=== PATIENT | female | born 1930 | race Caucasian/White ===

== ENCOUNTER → 2016-06-03 | Outpatient (CLI) | payer OTHER ==
[2016-06-03 11:22] LABS: Basophils # (auto) 0 uL; Basophils % (auto) 0.6 % (0.0-2.0); Eosinophils # (auto) 0.5 uL; Eosinophils % (auto) 6.2 % (0.0-7.0); Hematocrit 43.7 % (36.0-46.0); Hemoglobin 14.8 g/dL (12.2-16.2); Lymphocytes # (auto) 1.4 uL; Lymphocytes % (auto) 19.5 % (10.0-50.0); Mean Corpuscular Hemoglobin 31.1 pg (28.0-32.0); Mean Corpuscular Hgb Conc. 33.9 g/dL (32.0-36.0); Mean Corpuscular Volume 91.8 fL (80.0-100.0); Mean Platelet Volume 8.3 fL (7.4-10.4); Monocytes # (auto) 0.5 uL; Monocytes % (auto) 6.7 % (0.0-12.0); Platelet Count (auto) 372 10^3/uL (140-450); Red Cell Distribution Width 14.1 % (11.6-16.0); White Blood Cell 7.4 10^3/uL (4.4-10.8)
[2016-06-03 11:44] LABS: Albumin 4.1 g/dL (3.4-5.0); BUN/Creatinine Ratio 11.9; Bilirubin, Total 0.9 mg/dL (0.2-1.0); Calcium 9.3 mg/dL (8.5-10.1); Potassium 4.1 mmol/L (3.5-5.1); Total Protein 7.6 g/dL (6.4-8.2)
[2016-06-03 12:07] LABS: Urine Bilirubin Negative (Negative); Urine Blood Negative /uL (Negative); Urine Color Yellow (Yellow); Urine Glucose Normal (Normal); Urine Ketone Negative (Negative); Urine Nitrite Negative (Negative); Urine RBC <1 /hpf (0 - 4); Urine Squamous Epithelial Cell FEW /hpf (<5); Urine Urobilinogen Normal (Negative); Urine pH 6.5 (5.0-8.0)
== END | disposition home or self-care (01) ==
LOC: LAB 10:48
PROVIDERS: ATTEND Family Medicine
DX: Z00.00 Encounter for general adult medical examination without abnormal findings (principal); D64.9 Anemia, unspecified
CPT/HCPCS: 36415; 80053; 80061; 81001; 82306; 82607; 83036; 84443; 85025

== ENCOUNTER 2016-07-09 14:48 | Inpatient (IN) | payer OTHER ==
[~2016-07-09] VITALS: Ht 152.4 cm; Wt 63.7 kg
[2016-07-09 15:15] VITALS: BP 174/88
[2016-07-09] MEDS ORDERED: MORPHINE SULF INJ 2 MG/ML SYRINGE 1ML IV PRN (15:15)
[2016-07-09] MEDS ORDERED: NITROGLYCERIN 0.4 MG SL TAB SL PRN (15:15)
[2016-07-09] MEDS ORDERED: Fibersource Hn 1 Liter GT SCH (16:00)
[2016-07-09] MEDS ORDERED: VANCOMYCIN PER PHARMACY 0 MG IV SCH (16:00)
[2016-07-09] MEDS ORDERED: ACETAMINOPHEN 325 MG TAB PO PRN (16:00)
[2016-07-09] MEDS ORDERED: DEXTROSE (50%) 50ML SYRG IV PRN (16:00)
[2016-07-09] MEDS ORDERED: ACETAMINOPHEN 650 MG RECT SUPP PR PRN (16:00)
[2016-07-09] MEDS ORDERED: hydrALAZINE HCL 20 MG/ML VL IV PRN (16:00)
[2016-07-09] MEDS ORDERED: METOCLOPRAMIDE HCL 5MG/ml INJ 2ml VIAL IV PRN (16:00)
[2016-07-09] MEDS ORDERED: LACTULOSE 20Gm/30ML SOLN PEG PRN (16:00)
[2016-07-09 17:00] VITALS: BP 174/88
[2016-07-09 17:14] VITALS: BP 161/83
[2016-07-09] MEDS ORDERED: CYANOCOBALAMIN 500 MCG TAB PEG ONE (17:15)
[2016-07-09] MEDS ORDERED: ASPirin 325 MG TAB GT ONE (17:15)
[2016-07-09] MEDS ORDERED: VANCOMYCIN 1GM/250ML D5W 250 ML IV ONE (17:30)
[2016-07-09 17:51] LABS: BUN/Creatinine Ratio 23.1; Calcium 8.7 mg/dL (8.5-10.1)
[2016-07-09] MEDS: FREE WATER GT SCH (18:00)
[2016-07-09] MEDS: ACCU-CHEK COMFORT CURVE STRIP VI SCH (18:00)
[2016-07-09] MEDS: InsuLIN REG 1unit/0.01ml Soln (100units/ml) SC SCH (18:00)
[2016-07-09] MEDS: METHOCARBAMOL 500 MG TAB PEG SCH ×2 (18:00→23:06)
[2016-07-09] MEDS: MEROPENEM 500MG IVPB 100 ML IV SCH ×2 (18:30→23:17)
[2016-07-09] MEDS: METOPROLOL TARTRATE 25 MG TAB PEG SCH (18:30)
[2016-07-09] MEDS: ONDANSETRON HCL 4 MG/2 ML VIAL IV PRN (18:31)
[2016-07-09 18:46] VITALS: BP 133/84
[2016-07-09] MEDS: Fibersource Hn 1 Liter GT SCH (19:32)
[2016-07-09] MEDS: VANCOMYCIN 1GM/250ML D5W 250 ML IV SCH (19:37)
[2016-07-09 22:00] VITALS: BP 140/77
[2016-07-09] MEDS: DOCUSATE SOD 100 MG CAP PO SCH (22:00)
[2016-07-09] MEDS ORDERED: SODIUM CHLOR 0.9% PF (SALINE LOCK) 10ML VIAL IV SCH (22:00)
[2016-07-09] MEDS ORDERED: LEVETIRACETAM 500 MG TAB PO SCH (22:00)
[2016-07-09] MEDS: FLUTICASONE PROP NASAL SPR 0.05 % (50MCG) 16GM EACHNOSTRI SCH (23:04)
[2016-07-09] MEDS: ATORVASTATIN 20 MG TAB GT SCH (23:05)
[2016-07-09] MEDS: SODIUM CHLOR 0.9% PF (SALINE LOCK) 10ML VIAL IV SCH (23:06)
[2016-07-09] MEDS: LEVETIRACETAM 500 MG/5ML ORAL SOLN UD PEG SCH (23:15)
[2016-07-09] MEDS: HEPARIN SODIUM (PORCINE) 5000 UNITS/ML 1ML VIAL SC SCH (23:23)
[2016-07-10] MEDS: ACCU-CHEK COMFORT CURVE STRIP VI SCH ×4 (00:08→17:08)
[2016-07-10] MEDS: FREE WATER GT SCH ×4 (00:08→17:06)
[2016-07-10] MEDS: ONDANSETRON HCL 4 MG/2 ML VIAL IV PRN ×2 (00:29→06:06)
[2016-07-10] MEDS: LORazepam 0.5 MG TAB PEG PRN (00:32)
[2016-07-10] MEDS: MEROPENEM 500MG IVPB 100 ML IV SCH (04:37)
[2016-07-10 04:55] VITALS: BP 127/63
[2016-07-10] MEDS: InsuLIN REG 1unit/0.01ml Soln (100units/ml) SC SCH ×4 (05:48→17:08)
[2016-07-10] MEDS: SODIUM CHLOR 0.9% PF (SALINE LOCK) 10ML VIAL IV SCH ×3 (05:48→21:45)
[2016-07-10] MEDS: METHOCARBAMOL 500 MG TAB PEG SCH ×4 (05:52→21:46)
[2016-07-10] MEDS: HEPARIN SODIUM (PORCINE) 5000 UNITS/ML 1ML VIAL SC SCH ×3 (06:00→22:09)
[2016-07-10 06:05] LABS: Basophils # (auto) 0.1 uL; Basophils % (auto) 0.8 % (0.0-2.0); Eosinophils # (auto) 0.4 uL; Eosinophils % (auto) 2.9 % (0.0-7.0); Hematocrit 30.5 % (36.0-46.0); Hemoglobin 10.1 g/dL (12.2-16.2); Lymphocytes # (auto) 1.2 uL; Lymphocytes % (auto) 9.8 % (10.0-50.0); Mean Corpuscular Hemoglobin 31.1 pg (28.0-32.0); Mean Corpuscular Hgb Conc. 33.2 g/dL (32.0-36.0); Mean Corpuscular Volume 93.5 fL (80.0-100.0); Monocytes % (auto) 7.9 % (0.0-12.0); Neutrophils # (auto) 9.9 uL; Neutrophils % (auto) 78.6 % (37.0-80.0); Platelet Count (auto) 479 10^3/uL (140-450); Red Cell Distribution Width 14.3 % (11.6-16.0); White Blood Cell 12.6 10^3/uL (4.4-10.8)
[2016-07-10 06:36] LABS: Albumin 2.2 g/dL (3.4-5.0); BUN/Creatinine Ratio 19.5; Bilirubin, Total 0.4 mg/dL (0.2-1.0); Calcium 8.7 mg/dL (8.5-10.1); Potassium 3.6 mmol/L (3.5-5.1); Total Protein 5.8 g/dL (6.4-8.2)
[2016-07-10 08:00] VITALS: BP 147/72
[2016-07-10] MEDS: METOPROLOL TARTRATE 25 MG TAB PEG SCH ×2 (08:00→17:07)
[2016-07-10 09:00] VITALS: BP 147/72
[2016-07-10] MEDS: DOCUSATE SOD 100 MG CAP PO SCH ×2 (10:00→21:46)
[2016-07-10] MEDS: POLYETHYLENE GLYCOL 17GM PWDR PEG SCH (10:00)
[2016-07-10] MEDS: FLUTICASONE PROP NASAL SPR 0.05 % (50MCG) 16GM EACHNOSTRI SCH ×2 (10:00→21:45)
[2016-07-10] MEDS: ASPirin 325 MG TAB GT SCH (10:00)
[2016-07-10] MEDS: CYANOCOBALAMIN 500 MCG TAB PEG SCH (10:01)
[2016-07-10] MEDS: LEVETIRACETAM 500 MG/5ML ORAL SOLN UD PEG SCH ×2 (10:01→21:46)
[2016-07-10] MEDS: MEROPENEM 1GM IVPB 100 ML IV SCH ×2 (12:00→21:03)
[2016-07-10 13:00] VITALS: BP 142/74
[2016-07-10] MEDS: HYDROcodone-ACET 5/325MG TAB PEG PRN ×2 (14:00→21:50)
[2016-07-10] MEDS: VANCOMYCIN 1GM/250ML D5W 250 ML IV SCH (20:00)
[2016-07-10] MEDS: Fibersource Hn 1 Liter GT SCH (20:53)
[2016-07-10 21:15] VITALS: BP 144/75
[2016-07-10] MEDS: ATORVASTATIN 20 MG TAB GT SCH (21:45)
[2016-07-11] MEDS: FREE WATER GT SCH ×4 (00:14→17:07)
[2016-07-11] MEDS: ACCU-CHEK COMFORT CURVE STRIP VI SCH ×4 (00:14→17:09)
[2016-07-11] MEDS: ACETAMINOPHEN 650 mg PER 20 mL UD PEG PRN (02:10)
[2016-07-11] MEDS: LORazepam 0.5 MG TAB PEG PRN ×2 (02:10→12:58)
[2016-07-11] MEDS: MEROPENEM 1GM IVPB 100 ML IV SCH ×3 (04:36→20:46)
[2016-07-11] MEDS: HYDROcodone-ACET 5/325MG TAB PEG PRN ×3 (04:43→19:53)
[2016-07-11 05:14] VITALS: BP 127/63
[2016-07-11 05:49] LABS: Basophils # (auto) 0 uL; Basophils % (auto) 0.2 % (0.0-2.0); Eosinophils # (auto) 0.4 uL; Eosinophils % (auto) 3.9 % (0.0-7.0); Hematocrit 30.4 % (36.0-46.0); Hemoglobin 10.2 g/dL (12.2-16.2); Lymphocytes # (auto) 1.2 uL; Lymphocytes % (auto) 11.3 % (10.0-50.0); Mean Corpuscular Hemoglobin 31.2 pg (28.0-32.0); Mean Corpuscular Hgb Conc. 33.5 g/dL (32.0-36.0); Mean Corpuscular Volume 93.1 fL (80.0-100.0); Mean Platelet Volume 8.3 fL (7.4-10.4); Monocytes # (auto) 0.9 uL; Neutrophils # (auto) 8.4 uL; Neutrophils % (auto) 76.6 % (37.0-80.0); Platelet Count (auto) 466 10^3/uL (140-450); Red Cell Distribution Width 14.4 % (11.6-16.0)
[2016-07-11] MEDS: InsuLIN REG 1unit/0.01ml Soln (100units/ml) SC SCH ×4 (06:00→17:09)
[2016-07-11 06:15] LABS: Albumin 2.1 g/dL (3.4-5.0); BUN/Creatinine Ratio 23.8; Bilirubin, Total 0.3 mg/dL (0.2-1.0); Calcium 8.6 mg/dL (8.5-10.1); Potassium 3.7 mmol/L (3.5-5.1); Total Protein 5.6 g/dL (6.4-8.2)
[2016-07-11] MEDS: HEPARIN SODIUM (PORCINE) 5000 UNITS/ML 1ML VIAL SC SCH ×3 (06:25→21:30)
[2016-07-11] MEDS: METHOCARBAMOL 500 MG TAB PEG SCH ×5 (06:25→21:29)
[2016-07-11] MEDS: SODIUM CHLOR 0.9% PF (SALINE LOCK) 10ML VIAL IV SCH ×3 (06:26→22:00)
[2016-07-11 08:00] VITALS: BP 135/61
[2016-07-11 09:00] VITALS: BP 135/61
[2016-07-11] MEDS: LEVETIRACETAM 500 MG/5ML ORAL SOLN UD PEG SCH ×2 (09:32→21:29)
[2016-07-11] MEDS: ASPirin 325 MG TAB GT SCH (09:32)
[2016-07-11] MEDS: METOPROLOL TARTRATE 25 MG TAB PEG SCH ×2 (09:32→17:08)
[2016-07-11] MEDS: FLUTICASONE PROP NASAL SPR 0.05 % (50MCG) 16GM EACHNOSTRI SCH ×2 (09:32→21:29)
[2016-07-11] MEDS: DOCUSATE SOD 100 MG CAP PO SCH ×2 (09:33→20:47)
[2016-07-11] MEDS: CYANOCOBALAMIN 500 MCG TAB PEG SCH (09:33)
[2016-07-11] MEDS: POLYETHYLENE GLYCOL 17GM PWDR PEG SCH (09:33)
[2016-07-11 13:00] VITALS: BP 153/74
[2016-07-11 16:58] VITALS: BP 156/77
[2016-07-11] MEDS: Fibersource Hn 1 Liter GT SCH (19:52)
[2016-07-11] MEDS: VANCOMYCIN 1GM/250ML D5W 250 ML IV SCH (19:53)
[2016-07-11] MEDS: ATORVASTATIN 20 MG TAB GT SCH (21:29)
[2016-07-11 21:33] VITALS: BP 148/82
[2016-07-12] MEDS: InsuLIN REG 1unit/0.01ml Soln (100units/ml) SC SCH ×4 (00:40→18:00)
[2016-07-12] MEDS: LORazepam 0.5 MG TAB PEG PRN (00:52)
[2016-07-12] MEDS: ACETAMINOPHEN 650 mg PER 20 mL UD PEG PRN ×2 (00:53→08:54)
[2016-07-12] MEDS: MEROPENEM 1GM IVPB 100 ML IV SCH ×3 (04:22→21:00)
[2016-07-12 05:20] LABS: Basophils # (auto) 0.1 uL; Basophils % (auto) 0.5 % (0.0-2.0); Eosinophils # (auto) 0.3 uL; Eosinophils % (auto) 3.1 % (0.0-7.0); Hematocrit 30.2 % (36.0-46.0); Hemoglobin 10.2 g/dL (12.2-16.2); Lymphocytes # (auto) 1.2 uL; Lymphocytes % (auto) 10.9 % (10.0-50.0); Mean Corpuscular Hemoglobin 31.3 pg (28.0-32.0); Mean Corpuscular Hgb Conc. 33.7 g/dL (32.0-36.0); Mean Platelet Volume 8.1 fL (7.4-10.4); Monocytes # (auto) 0.9 uL; Monocytes % (auto) 8.9 % (0.0-12.0); Neutrophils # (auto) 8.1 uL; Neutrophils % (auto) 76.6 % (37.0-80.0); Platelet Count (auto) 476 10^3/uL (140-450); Red Cell Distribution Width 13.9 % (11.6-16.0); White Blood Cell 10.6 10^3/uL (4.4-10.8)
[2016-07-12 05:40] LABS: Albumin 2.4 g/dL (3.4-5.0); BUN/Creatinine Ratio 18.8; Calcium 8.6 mg/dL (8.5-10.1); Potassium 3.8 mmol/L (3.5-5.1)
[2016-07-12 05:41] VITALS: BP 136/72
[2016-07-12 05:43] LABS: Bilirubin, Total 0.4 mg/dL (0.2-1.0)
[2016-07-12] MEDS: HEPARIN SODIUM (PORCINE) 5000 UNITS/ML 1ML VIAL SC SCH ×3 (05:48→22:20)
[2016-07-12] MEDS: ACCU-CHEK COMFORT CURVE STRIP VI SCH ×4 (06:00→18:00)
[2016-07-12] MEDS: SODIUM CHLOR 0.9% PF (SALINE LOCK) 10ML VIAL IV SCH ×3 (06:04→22:19)
[2016-07-12] MEDS: FREE WATER GT SCH ×4 (06:04→18:00)
[2016-07-12] MEDS: HYDROcodone-ACET 5/325MG TAB PEG PRN ×3 (06:05→22:19)
[2016-07-12] MEDS: METHOCARBAMOL 500 MG TAB PEG SCH ×4 (06:05→22:18)
[2016-07-12 08:00] VITALS: BP 132/74
[2016-07-12] MEDS: METOPROLOL TARTRATE 25 MG TAB PEG SCH ×2 (08:37→18:42)
[2016-07-12 09:00] VITALS: BP 132/74
[2016-07-12] MEDS: POLYETHYLENE GLYCOL 17GM PWDR PEG SCH (10:00)
[2016-07-12] MEDS: DOCUSATE SOD 100 MG CAP PO SCH ×2 (10:00→22:00)
[2016-07-12] MEDS: CYANOCOBALAMIN 500 MCG TAB PEG SCH (10:21)
[2016-07-12] MEDS: FLUTICASONE PROP NASAL SPR 0.05 % (50MCG) 16GM EACHNOSTRI SCH ×2 (10:21→22:17)
[2016-07-12] MEDS: ASPirin 325 MG TAB GT SCH (10:21)
[2016-07-12] MEDS: LEVETIRACETAM 500 MG/5ML ORAL SOLN UD PEG SCH ×2 (10:21→22:19)
[2016-07-12 13:00] VITALS: BP 145/75
[2016-07-12 17:00] VITALS: BP 155/83
[2016-07-12] MEDS: VANCOMYCIN 1GM/250ML D5W 250 ML IV SCH (20:55)
[2016-07-12] MEDS: ATORVASTATIN 20 MG TAB GT SCH (22:19)
[2016-07-12 22:57] VITALS: BP 130/70
[2016-07-13] MEDS: FREE WATER GT SCH ×4 (00:36→17:12)
[2016-07-13] MEDS: MEROPENEM 1GM IVPB 100 ML IV SCH ×2 (03:36→12:13)
[2016-07-13 05:14] VITALS: BP 141/71
[2016-07-13] MEDS: HYDROcodone-ACET 5/325MG TAB PEG PRN ×3 (05:14→20:22)
[2016-07-13] MEDS: METHOCARBAMOL 500 MG TAB PEG SCH ×4 (05:14→22:18)
[2016-07-13] MEDS: InsuLIN REG 1unit/0.01ml Soln (100units/ml) SC SCH ×3 (05:15→11:44)
[2016-07-13] MEDS: ACCU-CHEK COMFORT CURVE STRIP VI SCH ×4 (05:15→17:47)
[2016-07-13] MEDS: SODIUM CHLOR 0.9% PF (SALINE LOCK) 10ML VIAL IV SCH ×3 (05:15→22:19)
[2016-07-13] MEDS: HEPARIN SODIUM (PORCINE) 5000 UNITS/ML 1ML VIAL SC SCH ×3 (05:16→22:21)
[2016-07-13 06:26] LABS: Basophils # (auto) 0 uL; Basophils % (auto) 0.5 % (0.0-2.0); Eosinophils # (auto) 0.4 uL; Eosinophils % (auto) 4.5 % (0.0-7.0); Hematocrit 29.9 % (36.0-46.0); Lymphocytes # (auto) 1.1 uL; Mean Corpuscular Hemoglobin 31.1 pg (28.0-32.0); Mean Corpuscular Hgb Conc. 33.5 g/dL (32.0-36.0); Mean Corpuscular Volume 92.7 fL (80.0-100.0); Mean Platelet Volume 8.1 fL (7.4-10.4); Monocytes # (auto) 0.8 uL; Monocytes % (auto) 8.7 % (0.0-12.0); Neutrophils # (auto) 6.3 uL; Neutrophils % (auto) 73.3 % (37.0-80.0); Platelet Count (auto) 462 10^3/uL (140-450); Red Cell Distribution Width 14.5 % (11.6-16.0); White Blood Cell 8.6 10^3/uL (4.4-10.8)
[2016-07-13 07:31] LABS: BUN/Creatinine Ratio 23.5; Calcium 8.7 mg/dL (8.5-10.1); Potassium 3.9 mmol/L (3.5-5.1)
[2016-07-13 08:00] VITALS: BP 104/55
[2016-07-13] MEDS: METOPROLOL TARTRATE 25 MG TAB PEG SCH ×2 (08:00→17:12)
[2016-07-13 08:14] VITALS: BP 104/55
[2016-07-13] MEDS: LEVETIRACETAM 500 MG/5ML ORAL SOLN UD PEG SCH ×2 (09:35→22:19)
[2016-07-13] MEDS: FLUTICASONE PROP NASAL SPR 0.05 % (50MCG) 16GM EACHNOSTRI SCH ×2 (09:35→22:19)
[2016-07-13] MEDS: ASPirin 325 MG TAB GT SCH (09:35)
[2016-07-13] MEDS: CYANOCOBALAMIN 500 MCG TAB PEG SCH (09:35)
[2016-07-13] MEDS: POLYETHYLENE GLYCOL 17GM PWDR PEG SCH (09:36)
[2016-07-13] MEDS: DOCUSATE SOD 100 MG CAP PO SCH ×2 (09:36→22:00)
[2016-07-13 12:30] VITALS: BP 100/56
[2016-07-13 16:29] VITALS: BP 98/68
[2016-07-13] MEDS: PIPERACILLIN-TAZOB 3.375GM 100 ML IV SCH (17:12)
[2016-07-13 21:53] VITALS: BP 157/64
[2016-07-13] MEDS: ATORVASTATIN 20 MG TAB GT SCH (22:18)
[2016-07-14] VITALS (8 sets, daily range): BP systolic 98–157; BP diastolic 58–90
[2016-07-14] MEDS: PIPERACILLIN-TAZOB 3.375GM 100 ML IV SCH ×2 (00:16→05:32)
[2016-07-14] MEDS: FREE WATER GT SCH ×4 (00:16→17:44)
[2016-07-14] MEDS: HYDROcodone-ACET 5/325MG TAB PEG PRN ×3 (02:39→22:16)
[2016-07-14] MEDS: SODIUM CHLOR 0.9% PF (SALINE LOCK) 10ML VIAL IV SCH ×3 (05:32→22:25)
[2016-07-14] MEDS: METHOCARBAMOL 500 MG TAB PEG SCH ×4 (05:33→22:16)
[2016-07-14] MEDS: HEPARIN SODIUM (PORCINE) 5000 UNITS/ML 1ML VIAL SC SCH ×3 (05:34→22:18)
[2016-07-14] MEDS: ACCU-CHEK COMFORT CURVE STRIP VI SCH ×2 (05:43)
[2016-07-14] MEDS: METOPROLOL TARTRATE 25 MG TAB PEG SCH ×2 (08:00→17:44)
[2016-07-14] MEDS: POLYETHYLENE GLYCOL 17GM PWDR PEG SCH (10:00)
[2016-07-14] MEDS: FLUTICASONE PROP NASAL SPR 0.05 % (50MCG) 16GM EACHNOSTRI SCH ×2 (10:16→22:14)
[2016-07-14] MEDS: LEVETIRACETAM 500 MG/5ML ORAL SOLN UD PEG SCH ×2 (10:16→22:19)
[2016-07-14] MEDS: ASPirin 325 MG TAB GT SCH (10:16)
[2016-07-14] MEDS: CYANOCOBALAMIN 500 MCG TAB PEG SCH (10:17)
[2016-07-14] MEDS: DOCUSATE SOD 100 MG CAP PO SCH ×2 (10:17→22:24)
[2016-07-14] MEDS ORDERED: ASPI-111 GT (12:07)
[2016-07-14] MEDS ORDERED: AMOX-277 PO (12:07)
[2016-07-14] MEDS ORDERED: ATOR20TA50 GT (12:07)
[2016-07-14] MEDS ORDERED: SACC250C PO (12:07)
[2016-07-14] MEDS ORDERED: FLORASTOR (S. BOULARDII) 250 MG CAP PO ONE (12:15)
[2016-07-14] MEDS: LORazepam 0.5 MG TAB PEG PRN (12:40)
[2016-07-14] MEDS ORDERED: HEPARIN SODIUM (PORCINE) 5000 UNITS/ML 1ML VIAL ONE ×2 (21:41→21:42)
[2016-07-14] MEDS: AMOXICILLIN/CLAVUL 875 MG TAB PO SCH (22:24)
[2016-07-14] MEDS: ATORVASTATIN 20 MG TAB GT SCH (22:24)
[2016-07-15] MEDS: FREE WATER GT SCH ×2 (00:13→06:04)
[2016-07-15 05:30] VITALS: BP 147/76
[2016-07-15] MEDS: METHOCARBAMOL 500 MG TAB PEG SCH (06:05)
[2016-07-15] MEDS: SODIUM CHLOR 0.9% PF (SALINE LOCK) 10ML VIAL IV SCH (06:05)
[2016-07-15] MEDS: HEPARIN SODIUM (PORCINE) 5000 UNITS/ML 1ML VIAL SC SCH (06:06)
[2016-07-15 09:00] VITALS: BP 133/68
[2016-07-15] MEDS: LEVETIRACETAM 500 MG/5ML ORAL SOLN UD PEG SCH (09:28)
[2016-07-15] MEDS: ASPirin 325 MG TAB GT SCH (09:28)
[2016-07-15] MEDS: METOPROLOL TARTRATE 25 MG TAB PEG SCH (09:28)
[2016-07-15] MEDS: FLUTICASONE PROP NASAL SPR 0.05 % (50MCG) 16GM EACHNOSTRI SCH (09:28)
[2016-07-15] MEDS: DOCUSATE SOD 100 MG CAP PO SCH (09:29)
[2016-07-15] MEDS: AMOXICILLIN/CLAVUL 875 MG TAB PO SCH (09:29)
[2016-07-15] MEDS: CYANOCOBALAMIN 500 MCG TAB PEG SCH (09:29)
[2016-07-15] MEDS: POLYETHYLENE GLYCOL 17GM PWDR PEG SCH (09:29)
[2016-07-15] MEDS ORDERED: FLORASTOR (S. BOULARDII) 250 MG CAP PO SCH (10:00)
== END 2016-07-15 11:45 | DRG 56 ==
LOC: TELE-WESTW 14:48 → WEST WING 07-15 01:55
PROVIDERS: ADMIT Family Medicine; ATTEND Internal Medicine
DX: I69.354 Hemiplegia and hemiparesis following cerebral infarction affecting left non-dominant side (principal); J69.0 Pneumonitis due to inhalation of food and vomit; E43 Unspecified severe protein-calorie malnutrition; E78.5 Hyperlipidemia, unspecified; I10 Essential (primary) hypertension; I25.10 Atherosclerotic heart disease of native coronary artery without angina pectoris; E11.9 Type 2 diabetes mellitus without complications; D63.8 Anemia in other chronic diseases classified elsewhere; Z95.5 Presence of coronary angioplasty implant and graft; Z88.5 Allergy status to narcotic agent; I69.320 Aphasia following cerebral infarction; I69.391 Dysphagia following cerebral infarction; Z68.27 Body mass index [BMI] 27.0-27.9, adult
CPT/HCPCS: 36415; 71010; 80048; 80053; 80202; 82962; 85025; 87081; 92610; 93306; 93971; 97001; 97110; 97116; 97530; J2185; J2405; J2543

== ENCOUNTER → 2017-04-12 | Outpatient (CLI) | payer OTHER ==
[2017-04-12 10:37] LABS: Basophils # (auto) 0 uL; Basophils % (auto) 0.4 % (0.0-2.0); Eosinophils # (auto) 0.2 uL; Eosinophils % (auto) 2.3 % (0.0-7.0); Hematocrit 39.6 % (36.0-46.0); Hemoglobin 13.3 g/dL (12.2-16.2); Lymphocytes # (auto) 1.6 uL; Lymphocytes % (auto) 22.2 % (10.0-50.0); Mean Corpuscular Hemoglobin 30.9 pg (28.0-32.0); Mean Corpuscular Hgb Conc. 33.5 g/dL (32.0-36.0); Mean Corpuscular Volume 92.1 fL (80.0-100.0); Monocytes # (auto) 0.6 uL; Monocytes % (auto) 7.8 % (0.0-12.0); Neutrophils # (auto) 4.9 uL; Neutrophils % (auto) 67.3 % (37.0-80.0); Platelet Count (auto) 329 10^3/uL (140-450); Red Cell Distribution Width 14.1 % (11.8-14.3); White Blood Cell 7.2 10^3/uL (4.4-10.8)
[2017-04-12 14:16] LABS: Albumin 3.8 g/dL (3.4-5.0); Bilirubin, Total 0.5 mg/dL (0.2-1.0); Calcium 9.3 mg/dL (8.5-10.1); Potassium 4.4 mmol/L (3.5-5.1); Total Protein 7.3 g/dL (6.4-8.2)
[2017-04-12 16:19] LABS: Urine Bacteria NONE SEEN /hpf (None Seen); Urine Blood Negative /uL (Negative); Urine Mucus FEW (None Seen); Urine Specific Gravity 1.015 (1.001-1.035); Urine WBC 5 /hpf (0 - 5)
== END | disposition home or self-care (01) ==
LOC: LAB 10:15
PROVIDERS: ATTEND Nurse Practitioner
DX: E78.5 Hyperlipidemia, unspecified (principal)
CPT/HCPCS: 36415; 80053; 80061; 81001; 83036; 84443; 85025